=== PATIENT | male | born 1970 | race Two or more races ===

== ENCOUNTER 2016-03-21 15:39 | Emergency (ER) | payer SELFPAY ==
[~2016-03-21] VITALS: Ht 170.2 cm; Wt 113.4 kg
[2016-03-21 16:07] VITALS: BP 127/98
== END 2016-03-21 16:38 | disposition home or self-care (01) ==
LOC: ER 15:45
DX: S20.212A Contusion of left front wall of thorax, initial encounter (principal); S30.1XXA Contusion of abdominal wall, initial encounter; V43.62XA Car passenger injured in collision with other type car in traffic accident, initial encounter; Y93.89 Activity, other specified; Y99.8 Other external cause status; Y92.89 Other specified places as the place of occurrence of the external cause